=== PATIENT | female | born 1985 | race Hispanic/Latino ===

== ENCOUNTER 2021-10-07 22:54 | Emergency (ER) | payer MEDICAID ==
[~2021-10-07] VITALS: Ht 154.9 cm; Wt 97.5 kg
[2021-10-08 00:27] LABS: APPEARANCE,URINE Cloudy (CLEAR); BILIRUBIN,URINE Negative (NEGATIVE); COLOR,URINE Yellow (YELLOW); GLUCOSE, URINE (UA) Negative (NEGATIVE); KETONES,URINE Trace mg/dL (NEGATIVE); LEUKOCYTE ESTERASE ,URINE Trace (NEGATIVE); NITRATE,URINE Negative (NEGATIVE); OCCULT BLOOD,URINE Negative (NEGATIVE); PH,URINE 6.5 (5.0-8.0); PROTEIN,URINE Negative (NEGATIVE)
[2021-10-08] MEDS ORDERED: KETOROLAC 60 MG VIAL (30MG/ML) IM ONE (00:30)
[2021-10-08] MEDS ORDERED: DICYCLOMINE HCL 20 MG TAB PO ONE (00:30)
[2021-10-08] MEDS ORDERED: ORPHENADRINE CITRATE 30 MG/ML ML IM ONE (00:30)
[2021-10-08 00:43] LABS: WBC,URINE 0-1 /HPF (0-1)
[2021-10-08 01:11] LABS: BACTERIA,URINE Many /HPF (None Seen); SQUAMOUS EPITHELIAL CELL,UR Many /HPF (0-2)
[2021-10-08] MEDS ORDERED: ORPH-43 PO (02:00)
[2021-10-08] MEDS ORDERED: SULF1TAB42 PO (02:00)
[2021-10-08] MEDS ORDERED: DICY20TA2 PO (02:00)
[2021-10-08] MEDS ORDERED: SULFAMETHOX-TMP DS 800/160 TAB PO ONE (02:00)
[2021-10-08] MEDS ORDERED: PHENAZOPYRIDINE HCL 200 MG TABLET PO ONE (02:00)
[2021-10-08] MEDS ORDERED: PHEN-847 PO (02:00)
[2021-10-08] MEDS ORDERED: PHENAZOPYRIDINE HCL 200 MG TABLET ONE (02:11)
[2021-10-08] MEDS ORDERED: SULFAMETHOX-TMP DS 800/160 TAB ONE (02:11)
[2021-10-08 02:30] VITALS: BP 136/92
== END 2021-10-08 02:40 | disposition home or self-care (01) ==
LOC: EDH 22:54
DX: N39.0 Urinary tract infection, site not specified (principal); M62.838 Other muscle spasm; Z90.49 Acquired absence of other specified parts of digestive tract; E03.9 Hypothyroidism, unspecified; Z79.1 Long term (current) use of non-steroidal anti-inflammatories (NSAID); Z88.5 Allergy status to narcotic agent
CPT/HCPCS: 36415; 81001; 84703; 87088; 96372 ×2; 99284; J1885; J2360